=== PATIENT | female | born 1990 | race Asian ===

== ENCOUNTER 2019-06-11 14:43 | Emergency (ER) | payer OTHER ==
[2019-06-11 15:28] VITALS: BP 118/80
--- NOTE | 2019-06-11 15:55 | UC ---
Throat Pain/Nasal Berto HPI - HPI Summary HPI Summary: 2 days history nasal congestion, ear fullness and occasional cough, fatigue, fever. nasal berto worse when she lies down, patient is currently 25 weeks preg. Has received care - History of Current Complaint Chief Complaint: UCGeneralIllness Stated Complaint: SINUS CONGESTION, AND SORE THROAT Time Seen by Provider: 06/11/19 15:35 Hx Obtained From: Patient ?: Yes - 25 weeks Onset/Duration: Gradual Onset Severity: Moderate Pain Intensity: 5 Cough: Nonproductive Associated Signs & Symptoms: Positive: Nasal Discharge, Fever. Negative: Vomiting - Allergies/Home Medications Allergies/Adverse Reactions: Allergies Allergy/AdvReac Type Severity Reaction Status Date / Time No Known Allergies Allergy Verified 06/11/19 15:28 Home Medications: Home Medications Calcium Carbonate/Vitamin D3 [Calcium/Vitamin D] 1 cap PO DAILY 06/11/19 [ History Confirmed 06/11/19] [place]-3 Fatty Acids (Nf) [Fish Oil (NF)] 1,000 mg PO DAILY 06/11/19 [History Confirmed 06/11/19] Pnv No.95/Ferrous Fum/Folic AC [ Caplet] 1 each PO DAILY 06/11/19 [ History Confirmed 06/11/19] PMH/Surg Hx/FS Hx/Imm Hx Previously Healthy: Yes - Surgical History Surgical History: None - Family History Known Family History: Positive: None - Social History Occupation: Unemployed Lives: With Family Alcohol Use: None Substance Use Type: None Smoking Status (MU): Never Smoked Tobacco Review of Systems All Other Systems Reviewed And Are Negative: Yes Constitutional: Positive: Fever, Fatigue Skin: Positive: Negative. Negative: Rash ENT: Positive: Sore Throat - mild, Nasal Discharge, Sinus Congestion Respiratory: Positive: Cough. Negative: Shortness Of Breath Cardiovascular: Positive: Negative. Negative: Chest Pain Gastrointestinal: Positive: Negative. Negative: Abdominal Pain, Diarrhea, Nausea Neurological: Positive: Negative. Negative: Headache Is Patient Immunocompromised?: No Physical Exam Triage Information Reviewed: Yes Appearance: Well-Appearing, No Pain Distress, Well-Nourished Vital Signs: Initial Vital Signs Temp 99.4 F 06/11/19 15:24 Pulse 90 06/11/19 15:24 Resp 16 06/11/19 15:24 BP 118/80 06/11/19 15:24 Pulse Ox 99 06/11/19 15:24 Vital Signs Reviewed: Yes Eye Exam: Normal Eyes: Positive: Conjunctiva Clear ENT: Positive: Pharynx normal, Nasal congestion, TMs normal. Negative: Sinus tenderness Neck exam: Normal Neck: Positive: No Lymphadenopathy Respiratory Exam: Normal Respiratory: Positive: Lungs clear Cardiovascular Exam: Normal Cardiovascular: Positive: RRR Neurological Exam: Normal Neurological: Positive: Alert Psychological Exam: Normal Skin Exam: Normal Throat Pain/Nasal Course/Dx - Differential Dx/Diagnosis Differential Diagnosis/HQI/PQRI: Influenza, Pharyngitis, Sinusitis, Tonsillitis Provider Diagnosis: Upper respiratory infection Discharge ED - Sign-Out/Discharge Documenting (check all that apply): Patient Departure All imaging exams completed and their final reports reviewed: No Studies - Discharge Plan Condition: Stable Disposition: HOME Patient Education Materials: Upper Respiratory Infection (ED) Referrals: No Primary Care Phys,NOPCP [Primary Care Provider] - Additional Instructions: rest and drink plenty of fluids you may use Tylenol for pain and fever as directed return if your symptoms worsen at any time - Billing Disposition and Condition Condition: STABLE Disposition: Home
[2019-06-11 16:07] LABS: Influenza A Molecular NEGATIVE (Negative); Influenza B Molecular NEGATIVE (Negative)
== END 2019-06-11 16:19 | disposition home or self-care (01) ==
LOC: UCEAST 14:43
DX: O99.512 Diseases of the respiratory system complicating pregnancy, second trimester (principal); J06.9 Acute upper respiratory infection, unspecified; Z3A.25 25 weeks gestation of pregnancy
CPT/HCPCS: 99211; G0463

== ENCOUNTER 2019-09-20 18:09 | Inpatient (IN) | payer OTHER ==
[2019-09-20] MEDS ORDERED: Dinoprostone* 10 MG VAG.SUPP VAGINAL ONE (18:24)
[2019-09-20] MEDS ORDERED: Lactated Ringers 1000 ML Bag* 1,000 ML IV ONE (20:08)
[2019-09-20] MEDS ORDERED: Buffered Lidocaine 1% SYRIN* 1 ML/SYRINGE INTRADERM ONE (20:08)
[2019-09-20] MEDS ORDERED: Promethazine INJ(RESTRICTED)* 25 MG/ML 1 ML VIAL IM PRN (20:11)
[2019-09-20] MEDS ORDERED: hydrOXYzine HCL TAB* 50 MG PO PRN (20:12)
[2019-09-20] MEDS ORDERED: Morphine 10 MG/ML VIAL (1 ml) IM PRN (20:13)
--- NOTE | 2019-09-20 20:23 | HP ---
General Information - Reason for Visit Term for elective induction of labor - General Information Maternal Age: 29 Grav: 1 Para: 0 SAB: 0 IEA: 0 Estimated Due Date: 09/22/19 Determined By: LMP Maternal Blood Type and Rh: B Positive - Results this Serology/RPR Result: Non-Reactive Rubella Result: Immune HBsAg Result: Negative HIV Result: Negative GBS Culture Result: Negative Past Medical History Delivery History: See Records Delivery History Comment: No previous pregnancies Pertinent Past Medical History: Non-Contributory - Mild back pain Pertinent Past Surgical History: None Pertinent Family History: Non-Contributory Family History Comment: Throat cancer Stroke - Antepartal Records Antepartal Records: Reviewed, Uncomplicated Review of Systems Constitutional: Comfortable CV Complaint: No Respiratory: Shortness of Breath: No Gastrointestinal: No Nausea/Vomiting, Normal Bowel Movement Genitourinary: No Dysuria, No Leaking Fluid, Spotting Musculoskeletal: No Complaint Neurological: No Headache, No Visual Changes Movement: Normal Exam Allergies/Adverse Reactions: Allergies No Known Allergies Allergy (Verified 06/11/19 15:28) BP 125/76 HR 80 T 98.7 RR 20 O2 100% - Measurements Height: 5 ft 5.75 in Weight: 133 lb Weight in lbs: [id number] Body Mass Index (BMI): 21.6 Pre- Weight: 115 lb Weight Gained This : 18 lbs and 0 ozs - Exam Breast: Breast Exam Deferred CVA: No CVA Tenderness Extremities: No Edema Heart: Normal Rhythm/Heart Sounds HEENT: No Significant Findings Lungs: Clear Bilaterally Rectal: Rectal Exam Deferred Reflexes: DTR 2+, - - no clonus Thyroid: - - WNL @ entry to care - Abdominal Exam Abdomen Exam: Non-Tender, Fundal Height Consistent with Dates - Ultrasound/Biophysical Profile Ultrasound Status: Not Done Targeted Exam Findings Estimated Weight: 6.5lb Cervical Exam: Closed Effacement: Thick Station: -2 Presenting Part: Vertex Membrane Status: Intact Bleeding/Discharge: Bloody Show - Small amount of brownish spotting EFM Findings - External Monitor Findings Baseline Heart Rate: 145 External Monitor Findings: Accelerations Present, No Pattern of Variable or Late Decelerations, Variability Moderate Contractions: Irregular, Mild, < 45 Seconds Contraction Frequency: q 8-10 min Assessment/Plan - Assessment IUP @ 39+5 weeks gestation for elective induction of labor. No evidence acidemia. Intact membranes - Plan Plan: Induction, Admit - Anticipate Vaginal Delivery Plan Comment: PARQ discussion of cervidil for ripening with discussion of use of further ripening agents, Cook's balloon catheter or pitocin as needed. Questions answered, patient in agreement. Reviewed use of therapeutic rest agents if needed for sleep and PRN orders in. - Date/Time of Admission Date of Admission: 09/20/19 Time of Admission: 20:15
[2019-09-20 21:45] LABS: Urine Benzodiazepine Screen None Detected (None Detect); Urine Opiates Screen None Detected (None Detect)
[2019-09-21] MEDS ORDERED: Lidocaine 2% JELLY* 6 ML JELLY TOPICAL ONE ×2 (08:23→11:25)
--- NOTE | 2019-09-21 10:34 | PN ---
Progress Note - Progress Note Date of Service: 09/21/19 Note: S: RN pulled cervidil 12 hours after placement. Pt awake and uncomfortable with contractions. Reports contractions every 2 minutes, lasting 45 seconds. Active FM. O: 99.3, 125/71, HR 53 FHR 135, moderate variability, +accels, no decelerations Contractions: 2-4 mins, coupling noted, palpate mild-moderate, good resting tone VE: 50/-1, IBOW, small amt of bloody show A: IUP@39+6 here for an elective induction Early labor VSS More regular contraction pattern Making cervical change P: Pt to labor without intervention at this point VE at noon, if no cervical change will consider cook catheter If VE change, continue to labor, consider IV and pain meds prn
--- NOTE | 2019-09-21 14:08 | PN ---
Progress Note - Progress Note Date of Service: 09/21/19 Note: S: Pt is resting in bed. Pt feels like her contractions are spacing out. O: 99.2, 130/82, HR 60s FHR 135, moderate variability, +accels, no decelerations Contractions: 3-6 mins, palpate mild-moderate, good resting tone VE: 2/50/-1, IBOW A: IUP@39+6 here for an elective induction Early labor, cervix continues to change Cook catheter placed without complication. Balloons inflated to 80/60. Pt used nitrous oxide for placement of Cook catheter and for contraction discomfort. P: PARQ discussion about low dose Pitocin with Cook catheter if contractions stop , space. Pt in agreement with plan. If pain not well managed with nitrous oxide, can consider IV pain medication or epidural prn Anticipate progression to active labor and
[2019-09-21] MEDS ORDERED: Morphine 10 MG/ML VIAL (1 ml) IV PRN (14:40)
[2019-09-21 14:52] LABS: ABS Lymphocytes 1.6 10^3/ul (1.0-4.8); ABS Monocytes 0.8 10^3/ul (0-0.8); ABS Neutrophils 7.9 10^3/ul (1.5-7.7); Eosinophil % 0.4 %; Hematocrit 40 % (35-47); Lymphocyte % 15.4 %; Mean Corpuscular HGB Conc 35 g/dL (31-36); Mean Corpuscular Hemoglobin 32 pg (27-31); Mean Corpuscular Volume 92 fL (80-97); Mean Platelet Volume 9.1 fL (7.4-10.4); Platelet Count 166 10^3/uL (150-450); Red Cell Distribution Width 13 % (10-15); White Blood Count 10.4 10^3/uL (3.5-10.8)
[2019-09-21] MEDS ORDERED: Oxytocin in LR* 20 UNITS/1,000 ML BAG IVPB SCH (17:00)
[2019-09-21] MEDS: Lactated Ringers 1000 ML Bag* 1,000 ML IV SCH ×2 (17:12→21:32)
[2019-09-21] MEDS ORDERED: OBEPIDURAL* 250 ML EPIDURAL ONE (20:39)
--- NOTE | 2019-09-21 20:45 | PN ---
Progress Note - Progress Note Date of Service: 09/21/19 Note: S: Pt is tearful and in considerable pain. Would like to discuss plan for moving forward O: 98.9, 106/61, HR 56, RR 16, O2 99% FHR 135, moderate variability, +accels, no decelerations Contractions: 1-5 mins, palpate moderate, good resting tone VE: deferred A: IUP@39+6 here for an elective induction Early vs active labor VSS, afebrile Irregular contractions No evidence of metabolic acidemia P: PARQ discussion about Epidural now, with Cook catheter in place. and titrate Pitocin vs. turn off Pitocin, IV pain meds, recheck cervix at 130 with removal of Cook. Pt and opt for epidural now After pt comfortable, will titrate Pitocin as tolerated Anticipate progression to active labor and
[2019-09-21] MEDS ORDERED: Famotidine TAB* 20 MG PO PRN (21:42)
[2019-09-21] MEDS ORDERED: Lactated Ringers 1000 ML Bag* 1,000 ML IV ONE (21:42)
[2019-09-21] MEDS ORDERED: Sodium Citrate/Citric Acid* 15 ML UDC PO PRN (21:42)
[2019-09-21] MEDS ORDERED: Lactated Ringers 1000 ML Bag* 1,000 ML IV SCH (22:00)
[2019-09-21] MEDS ORDERED: OBEPIDURAL* 250 ML EPIDURAL SCH (22:00)
[2019-09-22] MEDS ORDERED: Lactated Ringers 1000 ML Bag* 1,000 ML IV SCH (03:00)
[2019-09-22] MEDS ORDERED: Acetaminophen TAB* 325 MG PO PRN (03:00)
[2019-09-22] MEDS ORDERED: Glycerin ADULT SUPP PR PRN (03:00)
[2019-09-22] MEDS ORDERED: Oxytocin in LR* 20 UNITS/1,000 ML BAG IVPB SCH (03:00)
--- NOTE | 2019-09-22 03:00 | PROCNOTE ---
[facility] OB: Delivery Note - Delivery A Date of : 09/22/19 Time of : 02:09 [place] Sex: Male Weight at : 6 lb 8 oz Score 1 Minute: 9 Score 5 Minutes: 9 Gestational Age in Weeks and Days at Delivery: 40 Weeks and 0 Days Delivery Method: Spontaneous Vaginal Labor: Induced Did Patient attempt ?: N/A, No Previous Amniotic Fluid: Clear Estimated Blood Loss: 350 Anesthesia/Analgesia: CEI for Labor - Nursery Level of Nursery: Regular/Bedside - Perineum Perineal Injury: Perineal Laceration, 2nd Degree Perineal Injury Comment: right labial Perineal Repair: By Delivering Practioner - Events Delivery Events of Note: Pitocin During Labor - Additional Delivery Notes Additional Delivery Notes: Pt was admitted to L&D on 09/21 for an elective IOL at 39 weeks. Following cervidil, Cook catheter, and Pitocin pt progressed to active labor and . Vertex delivery of live male, 6lbs 8oz and Apgars 9/9. Delivered left occipital- anterior (CARLA), nuchal cordx1. Body delivered without difficulty. Baby placed on mothers abdomen. Cord clamped and cut by FOB after pulsations ceased. Placenta delivered spontaneously via ramos, appears intact, 3vc. Pitocin given via IVPB for active management of 3rd stage. Perineum and vagina inspected - a second degree perineal and right labium laceration was noted. Repaired in the usual fashion with CEI infusing and under 1% lidocaine with 3-0 and 4-0 rapide. Normal anatomy restored, hemostatic. EBL 350mL. Mom and baby stable at time of note. Baby attempting to breastfeed.
[2019-09-22] MEDS ORDERED: Ammonia Inhalant* 1 EA AMP ONE (04:12)
[2019-09-22] MEDS: Ibuprofen TAB* 600 MG PO SCH ×4 (04:13→21:47)
[2019-09-22] MEDS: Dibucaine 1% 28.35 GM TUBE PR PRN ×3 (04:14→23:39)
[2019-09-22] MEDS: Witch Hazel PAD* JAR TOPICAL PRN ×2 (04:14→23:39)
[2019-09-22] MEDS ORDERED: Lidocaine 1% INJ* 10 MG/ML 30 ML SDV ONE (05:23)
[2019-09-22] MEDS ORDERED: Simethicone TAB* 80 MG TAB.CHEW PO SCH (08:30)
[2019-09-22] MEDS: Docusate CAP* 100 MG PO SCH ×3 (09:53→21:47)
--- NOTE | 2019-09-22 21:05 | PTEDU ---
Patient Name: TAMMY GODDARD RUPESHTAMMY selected video: Follow Me Mum: [facility] to view on 09/22/2019 at 9:05:[address] [facility] [email or web address]
--- NOTE | 2019-09-22 21:18 | PTEDU ---
Patient Name: TAMMY GODDARD GODDARDTAMMY selected video: Follow Me Mum: [facility] to view on 09/22/2019 at 9:17:32 PM from [email or web address]
[2019-09-23] MEDS: Ibuprofen TAB* 600 MG PO SCH ×4 (05:20→21:02)
[2019-09-23 07:02] LABS: ABS Basophils 0.1 10^3/ul (0-0.2); ABS Eosinophils 0.1 10^3/ul (0-0.6); ABS Monocytes 0.7 10^3/ul (0-0.8); ABS Neutrophils 6.3 10^3/ul (1.5-7.7); Eosinophil % 1.1 %; Hematocrit 31 % (35-47); Hemoglobin 10.6 g/dL (12.0-16.0); Lymphocyte % 21.7 %; Mean Corpuscular HGB Conc 35 g/dL (31-36); Mean Corpuscular Hemoglobin 32 pg (27-31); Mean Corpuscular Volume 93 fL (80-97); Mean Platelet Volume 8.7 fL (7.4-10.4); Platelet Count 131 10^3/uL (150-450); Red Blood Count 3.28 10^6 /uL (3.70-4.87); Red Cell Distribution Width 13 % (10-15); White Blood Count 9.2 10^3/uL (3.5-10.8)
[2019-09-23] MEDS: Docusate CAP* 100 MG PO SCH ×3 (08:49→21:02)
[2019-09-23] MEDS ORDERED: Ferrous Gluconate TAB* 324 MG TAB PO SCH (09:00)
[2019-09-24] MEDS: Ibuprofen TAB* 600 MG PO SCH ×2 (03:30→11:06)
[2019-09-24 07:28] VITALS: BP 95/54
[2019-09-24] MEDS: Docusate CAP* 100 MG PO SCH (11:06)
== END 2019-09-24 14:16 | disposition home or self-care (01) | DRG 807 ==
LOC: MCHOBOUT 18:09 → MCHOB 20:11
PROVIDERS: ADMIT Midwife; ATTEND Midwife
PROC: 10907ZC Drainage of Amniotic Fluid, Therapeutic from Products of Conception, Via Natural or Artificial Opening (ICD-10-PCS; 2019-09-21)
PROC: 4A1HXCZ Monitoring of Products of Conception, Cardiac Rate, External Approach (ICD-10-PCS; 2019-09-21)
PROC: 3E0P7VZ Introduction of Hormone into Female Reproductive, Via Natural or Artificial Opening (ICD-10-PCS; 2019-09-21)
PROC: 3E033VJ Introduction of Other Hormone into Peripheral Vein, Percutaneous Approach (ICD-10-PCS; 2019-09-21)
PROC: 0U7C7ZZ Dilation of Cervix, Via Natural or Artificial Opening (ICD-10-PCS; 2019-09-21)
PROC: 10E0XZZ Delivery of Products of Conception, External Approach (ICD-10-PCS; principal; 2019-09-22)
PROC: 0KQM0ZZ Repair Perineum Muscle, Open Approach (ICD-10-PCS; 2019-09-22)
PROC: 0UQMXZZ Repair Vulva, External Approach (ICD-10-PCS; 2019-09-22)
DX: O70.1 Second degree perineal laceration during delivery (principal); Z37.0 Single live birth; O69.81X0 Labor and delivery complicated by cord around neck, without compression, not applicable or unspecified; Z3A.39 39 weeks gestation of pregnancy
CPT/HCPCS: 36415; 59200; 80307; 85025; 86850; 86900; 86901; A9270-GY; G0480; J2270; J2550

== ENCOUNTER 2021-06-25 05:28 | Inpatient (IN) ==
[2021-06-25] MEDS ORDERED: ceFOXitin 2 GM IVPREMIX 2 GM/50 ML BAG IVPB ONE (07:00)
[2021-06-25 07:29] LABS: Rapid COVID-19 Molecular Undetected (Undetected)
[2021-06-25 07:40] LABS: Urine Benzodiazepine Screen None Detected (None Detect); Urine Opiates Screen None Detected (None Detect)
[2021-06-25] MEDS ORDERED: Morphine PF AMP (0.5MG/ML) 5 MG/10 ML AMP ONE (07:57)
[2021-06-25] MEDS ORDERED: fentaNYL 100 mcg/2 ml 50 MCG/ML VIAL ONE (07:57)
[2021-06-25] MEDS ORDERED: Phenylephrine 40 mcg/mL 10mL (400mcg) SYRINGE ONE (08:22)
[2021-06-25] MEDS ORDERED: Glycopyrrolate IV 0.2 MG/ML 1 ML VIAL ONE (08:32)
[2021-06-25] MEDS ORDERED: Oxytocin 10 UNITS/ML 1 ML VIAL ONE ×2 (08:39→08:57)
[2021-06-25] MEDS ORDERED: Acetaminophen IV 1 GM/100ML 100 ML IV ONE (08:48)
[2021-06-25] MEDS ORDERED: fentaNYL 100 mcg/2 ml 50 MCG/ML VIAL IV PRN (08:48)
[2021-06-25] MEDS ORDERED: Naloxone 0.4 mg VIAL 0.4 mg/ml 1 ml VIAL IV PRN ×2 (08:48→08:49)
[2021-06-25] MEDS ORDERED: Ondansetron 4 mg VIAL 2 MG/ML 2 ml VIAL IV PRN ×2 (08:48→08:49)
[2021-06-25] MEDS ORDERED: Metoclopramide 5 MG/ML VIAL (10 mg) IV PRN (08:49)
[2021-06-25] MEDS ORDERED: Naloxone 4 mg VIAL (10 ml) 2 MG in NS 0.9% 250 ml 250 ML IV PRN (08:49)
[2021-06-25] MEDS ORDERED: Dibucaine 1% OINT 28.35 GM TUBE PR PRN (09:21)
[2021-06-25] MEDS ORDERED: Glycerin ADULT 2.4 gm SUPP PR PRN (09:21)
[2021-06-25] MEDS ORDERED: Witch Hazel PAD JAR TOPICAL PRN (09:21)
[2021-06-25] MEDS ORDERED: Oxytocin in LR 20 UNITS/1,000 ML BAG IVPB SCH (10:00)
[2021-06-25] MEDS ORDERED: Lactated Ringers 1000 ml BAG 1,000 ML IV SCH (10:00)
[2021-06-25 11:21] LABS: Urine Appearance Clear; Urine Bilirubin Negative (Negative); Urine Blood Negative (Negative); Urine Color Straw; Urine Glucose Negative (Negative); Urine Ketones Negative (Negative); Urine Nitrite Negative (Negative); Urine Protein Negative (Negative); Urine Specific Gravity 1.004 (1.002-1.030); Urine Urobilinogen Negative (Negative)
[2021-06-25] MEDS: oxyCODONE/Acetamin 5/325 mg TAB PO PRN (19:47)
[2021-06-26] MEDS: oxyCODONE/Acetamin 5/325 mg TAB PO PRN (00:05)
[2021-06-26 06:28] LABS: ABS Eosinophils 0.1 10^3/ul (0-0.6); ABS Lymphocytes 1.5 10^3/ul (1.0-4.8); ABS Monocytes 0.5 10^3/ul (0-0.8); ABS Neutrophils 6.4 10^3/ul (1.5-7.7); Eosinophil % 0.8 %; Hematocrit 31 % (35-47); Hemoglobin 10.4 g/dL (12.0-16.0); Mean Corpuscular HGB Conc 34 g/dL (31-36); Mean Corpuscular Hemoglobin 31 pg (27-31); Mean Corpuscular Volume 92 fL (80-97); Mean Platelet Volume 8.5 fL (7.4-10.4); Platelet Count 138 10^3/uL (150-450); Red Blood Count 3.31 10^6 /uL (3.70-4.87); Red Cell Distribution Width 13 % (10-15); White Blood Count 8.6 10^3/uL (3.5-10.8)
[2021-06-28 07:53] VITALS: BP 105/63
== END 2021-06-28 11:15 | disposition home or self-care (01) | DRG 788 ==
LOC: MCHOB 05:28
PROVIDERS: ADMIT Obstetrics & Gynecology; ATTEND Obstetrics & Gynecology